=== PATIENT | female | born 1935 | race Caucasian/White ===

== ENCOUNTER 2017-10-22 05:37 | Day surgery (SDC) | payer MEDICARE, OTHER ==
[~2017-10-22] VITALS: Ht 160 cm; Wt 52.2 kg
[~2017-10-22 05:37] MED LIST: CALTTAB5; LEFL20; NEXI40CA; PREM0.622; PYRI25TA9; TAB-TAB; VITA500T10
[2017-10-22] MEDS ORDERED: IOHEXOL 350 MG/ML 100 ML BTL (for Cath Lab) OTHER ONE (05:38)
[2017-10-22 06:17] VITALS: BP 122/70; PULSE 79; RESP 18; TEMP 97.7; O2SAT 96
[2017-10-22 06:22] LABS: AUTOMATED NEUTROPHIL # 4.1 TH/MM3 (1.8-7.7); BASOPHIL # 0.1 TH/MM3 (0-0.2); BASOPHIL % 0.9 % (0.0-2.0); EOSINOPHIL % 13.7 % (0.0-4.0); HEMOGLOBIN 13.5 GM/DL (11.6-15.3); LYMPH % 17.3 % (9.0-44.0); LYMPHOCYTE # 1.2 TH/MM3 (1.0-4.8); MEAN CELL VOLUME 92.9 FL (80.0-100.0); MEAN CORPUSCULAR HEMOGLOBIN 31.4 PG (27.0-34.0); MEAN CORPUSCULAR HGB CONC 33.8 % (32.0-36.0); MEAN PLATELET VOLUME 9.3 FL (7.0-11.0); MONO % 11.2 % (0.0-8.0); MONOCYTE # 0.8 TH/MM3 (0-0.9); NEUT % 56.9 % (16.0-70.0); PLATELET COUNT 198 TH/MM3 (150-450); RED BLOOD COUNT 4.31 MIL/MM3 (4.00-5.30); WHITE BLOOD COUNT 7.2 TH/MM3 (4.0-11.0)
[2017-10-22 06:47] LABS: INTERNATIONAL NORMALIZED RATIO 1.1 RATIO; PROTHROMBIN TIME - PATIENT 11.4 SEC (9.8-11.6)
[2017-10-22] MEDS ORDERED: ESTR.625 PO (06:54)
[2017-10-22] MEDS ORDERED: CENTCHW4 CHEW (06:54)
[2017-10-22] MEDS ORDERED: TRAM50TA PO (06:54)
[2017-10-22] MEDS ORDERED: VESI10TA2 PO (06:54)
[2017-10-22] MEDS ORDERED: ASPI-146 PO (06:54)
[2017-10-22] MEDS ORDERED: FOLI400T PO (06:54)
[2017-10-22] MEDS ORDERED: TREX7.5T PO (06:54)
[2017-10-22] MEDS ORDERED: MAGN400T2 PO (06:54)
[2017-10-22] MEDS ORDERED: LEXA20TA PO (06:54)
[2017-10-22] MEDS ORDERED: CARV6.252 PO (06:54)
[2017-10-22] MEDS ORDERED: BIOT10TA PO (06:54)
[2017-10-22] MEDS ORDERED: methylPREDNISolone SOD SUCC 40 MG/1 ML VIAL IV PUSH ONE (07:00)
[2017-10-22] MEDS ORDERED: FAMOTIDINE 20 MG/2 ML VIAL IV PUSH ONE (07:00)
[2017-10-22] MEDS ORDERED: diphenhydrAMINE HCL 50 MG/ML VIAL IV PUSH ONE (07:00)
[2017-10-22 07:02] LABS: BICARBONATE 29.3 MEQ/L (21.0-32.0); CALCIUM 8.6 MG/DL (8.5-10.1); CREATININE 0.97 MG/DL (0.50-1.00)
[2017-10-22] MEDS ORDERED: HEPARIN-NS/PF FLUSH BAG 2,000 ML IV FLUSH ONE (07:17)
[2017-10-22] MEDS ORDERED: MIDAZOLAM HCL 2 MG/2 ML VIAL ONE (07:17)
[2017-10-22] MEDS ORDERED: diphenhydrAMINE HCL 50 MG/ML VIAL ONE (07:38)
[2017-10-22] MEDS ORDERED: methylPREDNISolone SOD SUCC 125 MG/2 ML VIAL ONE (07:38)
--- NOTE | 2017-10-22 08:34 | CATHPROC ---
[facility] HIS Report Study Information Study Number Admission Scheduled Start Study Start [id number] Oct 22 2017 5:37AM 10/22/2017 Oct 22 2017 7:08AM [place] Service Cardiac Catheterization Admit Source Facility Department Other [facility] - Tightening Machine Operator Physician and Clinical Staff Initial Kory Pozo Grading Supervisor Nadia Curtis,DAVID Recorder Jessenia Nelson,RT(R) Scrub Sebastian Bishop RCIS(BS) Procedures Performed Procedure Location (Site) Vessel Name Angiogram LV LV Ventricle Coronary Angiograms LCA Left Coronary Coronary Angiograms RCA Right Coronary Equipment Time Obiee Report Developer Description Size Mfg Part Number Used/Scraped [id number] 07:09 [employer] SWAN ELVIS CATHETER FR 7 Used *[id number] TRANSDUCER, TRUWAVE [id number] 07:09 [employer]GAN * Used W/STOCKCOCK *[id number] TRANSDUCER, TRUWAVE [id number] 07:09 [employer]GAN * Used W/STOCKCOCK *[id number] *[id number] [id number] *[id number] PIGTAIL ANG. 145 INFINITI 534-652S CATHETER *[id number] 07:09 [employer] IND[employer]RIES PACK, CCL CUSTOM * Used *[id number] 07:09 [employer] PACER PEN, SKIN DUAL W/ RULER * Used *[id number] 07:49 [employer] MEDICAL SHEATH, FR6.5 PRELUDE 11CM FR 6.5 038ACT Used *[id number] 07:09 [employer] MEDICAL WIRE, 3MMJ .035 180CM 180CM Used *[id number] 07:09 [employer] MANIFOLD, 2 PORT * Used *[id number] 07:09 [employer] MANIFOLD, 4 PORT * Used *[id number] 07:09 [employer] OMNIPAQUE, 350 MG, 100ML 100ML [id number] Used 07:57 [employer] OMNIPAQUE, 350 MG, 50ML 50ML [id number] Used [id number] 07:09 [place] [employer],WARM AIR CCL * Used *[id number] 07:09 [employer] MEDICAL SHEATH, FR7 TERUMO (10CM) FR 7 Used *[id number] History: Current Medications Medication Dosage/Unit Route Frequency Last Date/Time Taken ASA TRAMADOL CARVEDILOL History: Allergies Allergy Reaction Gold Salts RASH Sulfa (Sulfonamide Antibiotics) DELIRIOUS potassium iodide HIVES, SOB sodium iodide HIVES, SOB iodine HIVES, SOB povidone-iodine HIVES, SOB hydroxychloroquine RASH, LOW BP History: Risk Factors Family History of Hypertension Dyslipidemia Previous CT Previous Heart Failure Premature CAD Yes No Yes No No Prior Valve Prior PCI Prior CABG Surgery No No No Cerebrovascular Peripheral Artery Chronic Lung On Dialysis Diabetes Disease Disease Disease No No No Yes No History: Stress Tests Stress or Imaging Studies Performed Yes Standard Exercise Stress Test No Stress Echo No Stress Test SPECT No Stress Test CMR No Cardiac CTA Coronary Calcium Score No No History: Other Current Smoker No Labs Hgb (g/dl) Hct (%) RBC (MIL/MM3) WBC (l/cumm) Platelets (thousands) 11.60-17.00 35.00-51.00 4.00-5.90 4.00-11.00 150.00-450.00 13.5 40 4.3 7.2 198 Glucose (mg/dl) BUN (mg/dl) Creatinine (mg/dl) BUN:Creatinine (1:x) 74.00-106.00 7.00-18.00 0.50-1.30 10.00-20.00 93 21 0.9 23.3 Na (meq/l) K (meq/l) 136.00-145.00 3.50-5.10 137 5.1 INR (PTT:PT) 0.90-1.10 1.1 CPK-MB (ng/ML) 0.50-3.60 Not Drawn Medication Medication Total Dose (Bolus/Oral) Medication Total Dosage/Unit 1% XYLOCAINE 20 mL PEPCID 20 mg VERSED 2 mg Medications (Bolus/Oral) Medication Time Given Dosage/Unit Administered By Reason PEPCID 10/22/2017 7:42:00 AM 20 mg Nadia Curtis 20 mg PEPCID given in lab by Nadia Curtis, DAVID in Left Forearm. Ordered by Kory Chen. VERSED 10/22/2017 7:43:00 AM 1 mg Nadia Curtis 1 mg VERSED given in lab by Nadia Curtis, RN via Peripheral IV. Ordered by Kory Chen. VERSED 10/22/2017 7:45:00 AM 1 mg Nadia Curtis 1 mg VERSED given in lab by Nadia Curtis, DAVID via Peripheral IV. Ordered by Kory Chen. 1% XYLOCAINE 10/22/2017 7:45:07 AM 20 mL Kory Chen 20 mL 1% XYLOCAINE given in lab by Kory Chen in Right Groin via Subcutaneous. Ordered by Kory Chen. Medication (Drip) Medication Time Given Dosage/Unit Concentration/Unit Diluent (ml) Solution IV Solutions 10/22/2017 7:16:16 AM 50 mL (IV) NaCl .9 Patient arrived on IV Solutions in Left Antecubital via Peripheral IV. Pump/Drip Flow using NaCl .9. Initial Case Assessment Cardiovascular HR NIBP Chest Pain 90 138/76 0 Edema Present Skin color Skin None Normal Warm Dry Circulatory - Right Pulses Dorsalis Pedis Femoral 1 3 Scale (0,1,2,3,4,d) Circulatory - Left Pulses Dorsalis Pedis Femoral 1 3 Scale (0,1,2,3,4,d) Neurological State Oriented to time-place- Alert Moves all extremities person Respiration - General Respiration Rate SpO2 (%) (B/min) 20 99 Final Case Assessment Cardiovascular HR NIBP Chest Pain 82 136/71 0 Edema Present Skin color Skin None Normal Warm Dry Circulatory - Right Pulses Dorsalis Pedis Femoral 1 3 Scale (0,1,2,3,4,d) Circulatory - Left Pulses Dorsalis Pedis Femoral 1 3 Scale (0,1,2,3,4,d) Neurological State Oriented to time-place- Alert Moves all extremities person Respiration - General Respiration Rate SpO2 (%) (B/min) 13 89 Chronological Log Time Study Chronological Log 7:15:46 Patient arrived via Bed. 7:15:47 Patient Name, D.O.B, / Armband Verified By R.N. 7:15:47 Consent signed by the physician and the patient and verified by the Tightening Machine Operator staff. 7:15:48 Pre-op and post- op instructions given; patient acknowledges understanding of instructions. 7:15:50 Verbal Stimulation=2 Physical Stimulation=2 Airway=2 Respiration=2 TOTAL=8. (0=absent, 1=li mited, 2=present) 7:16:07 Patient has been NPO for More than 6Hrs. 7:16:09 Skin Breakdown- none per patient 7:16:10 Patient Warmer Placed on the Table. 7:16:12 Monique Prominences Protected 7:16:14 A # 22 IV was noted in the Forearm (left). Grade = 0 7:16:16 Patient arrived on IV Solutions in Left Antecubital via Peripheral IV. Pump/Drip Flow using NaCl .9. 7:16:17 History and physical on the chart or being dictated. Assessment: Initial Case, HR=90 BPM, YPER=119/76 mmhg, Chest Pain=0, Edema=None, Color=Normal, Skin = Warm, Dry Right Pulses: Mark Ped=1, Femoral=3 7:16:18 Left Pulses: Mark Ped=1, Femoral=3 Neurological: State=Alert, Ox3, RENE Respiration: Resp=20 B/min, SpO2=99 % Vitals capture started with the following parameters, Patient=Adult, Interval=5 min, Initial Pr nkandn=497 mmHg, 7:24:22 Deflation Rate=5 mmHg, Cuff placed on Left Arm Vitals capture started with the following parameters, Patient=Adult, Interval=5 min, Initial Pre xneyu=615 mmHg, 7:29:11 Deflation Rate=5 mmHg, Cuff placed on Left Arm 7:29:45 HR=86 bpm, BNNY=802/76 mmhg, SpO2=95.0 %, Resp=15 B/min, Pain=0, Kieran=8, Valdivia=2 7:30:47 Reference ECG taken 7:32:20 MD paged 7:34:44 HR=77 bpm, ZYER=313/68 mmhg, SpO2=99.0 %, Resp=17 B/min, Pain=0, Kieran=8, Valdivia=2 7:36:05 Pressure channel 1 zeroed. 7:36:27 MD arrived. 7:39:43 HR=77 bpm, ZMTU=978/70 mmhg, SpO2=98.0 %, Resp=23 B/min, Pain=0, Kieran=8, Valdivia=2 7:42:00 20 mg PEPCID given in lab by Nadia Curtis, RN in Left Forearm. Ordered by Kory Chen. Time Out. Correct patient, correct procedure, correct physician, power injector loaded, with con trast with surgical team 7:42:27 present. Time Out Concurred by MD and individual staff in procedure. 7:43:00 1 mg VERSED given in lab by Nadia Curtis, RN via Peripheral IV. Ordered by Kory Chen. 7:43:30 Case Start 7:44:44 HR=91 bpm, QSQY=057/73 mmhg, SpO2=97.0 %, Resp=17 B/min, Pain=0, Kieran=8, Valdivia=2 7:45:00 1 mg VERSED given in lab by Nadia Curtis, RN via Peripheral IV. Ordered by Kory Chen. 7:45:07 20 mL 1% XYLOCAINE given in lab by Kory Chen in Right Groin via Subcutaneous. Ordered by Kory Chen. 7:47:07 Access site was Right Femoral Artery. 7:48:27 A SHEATH, FR6.5 PRELUDE 11CM FR 6.5 was advanced into the Fem Art (right) using the Percutan eous technique. 7:49:35 Access site was Right Femoral Vein. 7:49:42 A SHEATH, FR7 TERUMO (10CM) FR 7 was advanced into the Fem Vein (right) using the Percutaneo us technique. 7:49:46 HR=79 bpm, RVSB=150/69 mmhg, SpO2=95.0 %, Resp=19 B/min, Pain=0, Kieran=8, Valdivia=2 7:49:56 A SWAN ELVIS CATHETER FR 7 was inserted via Fem Vein (right) Recorded Pressure: RA, HR=79, Condition=Condition 1 7:50:33 (Right Atrium) RA Recorded Pressure: RV, HR=79, Condition=Condition 1 7:50:55 (Right Ventricle) RV 8 Recorded Pressure: MPA, HR=81, Condition=Condition 1 7:51:57 (Main Pulmonary Artery) MPA 46/33 Recorded Pressure: PCW, HR=79, Condition=Condition 1 7:52:15 (Pulmonary Capillary Wedge) PCW 7:52:41 Saturation: Site=PA (Pulmonary Artery) , O2=65.8 %, Hgb=13.5 gm/dl, Condition=Condition 1. U sed in calculation. 7:53:24 Saturation: Site=Ao (Aorta) , O2=92.8 %, Hgb=13.5 gm/dl, Condition=Condition 1. Used in calc ulation. 7:53:46 [place] Elvis Catheter Removed A PIGTAIL ANG. 145 INFINITI CATHETER FR 6 was advanced over a wire. OMNIPAQUE, 350 MG, 100ML 100 ML was 7:55:03 used for injections. 7:55:26 HR=79 bpm, CYSI=467/67 mmhg, SpO2=92.0 %, Resp=16 B/min, Pain=0, Kieran=8, Valdivia=2 Recorded Pressure: LV, HR=79, Condition=Condition 1 7:56:20 (Left Ventricle) LV 135/5/22 7:56:52 The LV was injected at 10 cc/sec for a total of 40. OMNIPAQUE, 350 MG, 50ML 50ML used. Recorded Pressure: LV, Ao, HR=82, Condition=Condition 1 7:58:07 (Left Ventricle) LV 125/5/22, (Aorta) Ao 130/57/88 7:58:29 Catheter was removed A JL 4.0 INFINITI CATHETER FR 6 was advanced over a wire. OMNIPAQUE, 350 MG, 100ML 100ML was use d for 7:58:46 injections. Recorded Pressure: Ao, HR=82, Condition=Condition 1 7:59:12 (Aorta) Ao 148/72/105 7:59:46 HR=81 bpm, OBTF=643/71 mmhg, SpO2=90.0 %, Resp=18 B/min, Pain=0, Kieran=8, Valdivia=2 8:00:10 The LCA was injected and visualized at various angles. OMNIPAQUE, 350 MG, 100ML 100ML used . 8:01:54 Catheter was removed A 3DRC INFINITI CATHETER FR 6 was advanced over a wire. OMNIPAQUE, 350 MG, 100ML 100ML was used for 8:02:02 injections. 8:04:21 The RCA was injected and visualized at various angles. OMNIPAQUE, 350 MG, 100ML 100ML used . 8:04:35 Catheter was removed 8:04:41 Case End 8:04:47 HR=82 bpm, EJJK=157/71 mmhg, SpO2=90.0 %, Resp=41 B/min, Pain=0, Kieran=8, Valdivia=2 Assessment: Final Case, HR=82 BPM, GPXW=627/71 mmhg, Chest Pain=0, Edema=None, Color=Normal, Sk in = Warm, Dry Right Pulses: Mark Ped=1, Femoral=3 8:05:00 Left Pulses: Mark Ped=1, Femoral=3 Neurological: State=Alert, Ox3, RENE Respiration: Resp=13 B/min, SpO2=89 % 8:05:18 Catheter(s) removed without difficulty 8:05:26 Arterial Sheath removed; pressure applied to access site. 8:05:31 Sterile dressing applied to site 8:05:32 No case complications noted. 8:05:33 Cine recording checked. 8:05:35 Bedside Report will be given. 8:05:39 Contrast Scanned 8:05:44 A Left and Right Heart Cath was performed. 8:09:48 HR=80 bpm, MBXA=564/80 mmhg, SpO2=95.0 %, Resp=28 B/min, Pain=0, Kieran=8, Valdivia=2 8:14:49 HR=79 bpm, QROK=152/76 mmhg, SpO2=90.0 %, Resp=11 B/min, Pain=0, Kieran=8, Valdivia=2 8:19:08 Venous Sheath removed; pressure applied to access site. 8:19:48 IEZC=247/86 mmhg, SpO2=93.0 %, Pain=0, Kieran=8, Valdivia=2 8:25:04 Vitals capture stopped. 8:26:28 Patient moved to [facility] End Study - Contrast Media Used In Study Contrast Total Opened (mL) Total Used (mL) Total Wasted (mL) Omnipaque 60 60 0 End Study - Maximum Contrast Load Max Contrast Load (mL) 290.4 End Study - Radiation Exposure Fluoro Time (minutes) 3.0 End Study - Sheaths Sheaths Pulled By Sheath Hold Time (min) Sebastian Bishop 20 End Study - Patient Disposition Complications Transferred To Interventional Outcome No Telemetry Bed No attempt made
--- NOTE | 2017-10-22 09:37 | MA ---
cc: ZOEY MTZ M.D. DATE 10/22/2017 PROCEDURE PERFORMED 1. Left heart catheterization. 2. Right heart catheterization. 3. Left ventriculography. 4. Coronary angiography. DESCRIPTION OF PROCEDURE The patient was brought to the cardiac labor service representative in a fasting state. She was premedicated with Benadryl, Pepcid and Solu-Medrol for her contrast allergy. She got an additional 2 mg of IV Versed in the lab for sedation. Using 1% lidocaine for local anesthesia a 6.5 [place] sheath was inserted in the right femoral artery and right femoral vein requiring only single sticks each. The right heart catheterization was performed in standard fashion using a Latonia-Kari catheter. Left ventricular pressure was then measured using a pigtail catheter followed by left ventriculography and then a pullback. Coronary angiography was then completed using a left 4 and 3-D RC catheter. At the end of the procedure the sheaths were pulled manually. There were no complications. FINDINGS HEMODYNAMICS Right atrial pressure was 9/7 with a mean of 5. Right ventricular pressure was 44/1 with an end-diastolic pressure of 8. Pulmonary artery pressure was 46/17 with a mean of 33. Pulmonary capillary wedge pressure was 21/30 with a mean of 19. There were about 15 mm V-waves. LV pressure was 125/5 with an end-diastolic pressure of 22. Aortic pressure measured non-simultaneously was 148/72 with a mean of 105. During pullback from the left ventricle to the aorta there was no gradient measured. Cardiac output by Tang was 3.9 liters per minute using a pulmonary artery saturation of 65.8% and a femoral artery saturation of 92.8%. LEFT VENTRICULOGRAPHY Left ventriculography reveals a symmetrically willie left ventricle with an estimated ejection fraction of 65%. There was angiographically 3-4+ mitral regurgitation seen. CORONARY ANGIOGRAPHY Coronary circulation is right-dominant. The left main coronary artery has a trivial degree of irregularity seen in only one view, otherwise appears normal. The left main trifurcates to the LAD, circumflex artery and ramus intermediate vessel. The LAD gives off two diagonal branches. All of the left coronary arteries are of fairly small diameter but appear normal. The right coronary artery is dominant appears normal. CONCLUSIONS 1. Severe mitral regurgitation in this patient with known mitral valve prolapse. There is mildly increased right-sided pressures. They are tall V-waves on the wedge tracing. 2. Normal coronary arteries. 3. Normal LV systolic function. RECOMMENDATIONS The patient will be referred for mitral valve repair. The hospital and surgeon will be at her choosing after further discussion. MD DC Haile/MARK /8:15 AM /9:22 AM
--- NOTE | 2017-10-22 18:29 | EKG ---
Date Performed: 10/22/2017 Time Performed: 06:27:48 PTAGE: 81 years EKG: Sinus rhythm . Prolonged QT interval Left axis deviation Inferior infarct - age undetermined Possible anteroseptal infarct - age undetermined Low QRS voltages in limb leads When compared to previous tracing, QT inte rval is longer. Premature ventricular contractions are no longer seen. Abnormal ECG PREVIOUS TRACING : 06/04/2007 09.02 DOCTOR: Jaime Mchugh Interpretating Date/Time 10/22/2017 18:27:41
== END 2017-10-22 13:20 | disposition home or self-care (01) ==
LOC: HCAT 05:37 → HDIC 05:38 → HCAT 13:20
PROVIDERS: ATTEND Internal Medicine Cardiovascular Disease
DX: R07.9 Chest pain, unspecified (principal); I34.1 Nonrheumatic mitral (valve) prolapse; I34.0 Nonrheumatic mitral (valve) insufficiency; I10 Essential (primary) hypertension; Z01.810 Encounter for preprocedural cardiovascular examination; Z01.818 Encounter for other preprocedural examination
CPT/HCPCS: 80048; 82810; 85025; 85610; 85730; 93005; 93460; 99152; 99153; C1769; C1893; J1200; J1644; J2250; J2920; J2930; Q9967